=== PATIENT | female | born 1955 | race Caucasian/White ===

== ENCOUNTER 2018-10-05 13:23 | Emergency (ER) | payer MEDICARE ==
[2018-10-05] MEDS ORDERED: DUONEB 0.5-3 MG/3 ml Neb IH ONE ×2 (13:59→14:09)
--- NOTE | 2018-10-05 13:59 | ERPHSYRPT ---
- History of Present Illness Time Seen by Provider: 10/05/18 13:45 Source: patient Exam Limitations: clinical condition Patient Subjective Stated Complaint: pt states she has had intermittent blue discoloration to her left fingers with pain at each onset. 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 Triage Nursing Assessment: pink/warm/dry, resp easy, pt uses assitive devices at home to get around, pt has hx of rt bka, a&ox4, dusky fingers and palm noted to lt hand with cap refill between 6-10 seconds. Physician History: PATIENT WITH A HISTORY OF PULMONARY CARCINOMA, COPD, PERIPHERAL VASCULAR OCCULSIVE DISEASE, AMPUTATION RIGHT BELOW KNEE, COMPLAINS OF INTERMITTENT BLUISH DISCOLORATION TO LEFT FINGERS AND PALM X 5 DAYS. PATIENT UNDER WENT A ULTRASOUND OF THE LEFT UPPER EXTREMITY WHICH WAS NEGATIVE FOR DVT. DENIES PAIN IN FINGERS, DYSPNEA, CHEST PAIN OR PALPITATIONS. PATIENT TREATED WITH A 5 DAY COURSE ANTIBIOTICS ZITHROMAX FOR LEFT PERIHILAR OPACITY FINDING ON CHEST XRAY ON 10/01/2018. Occurred: days ago Method of Injury: other (NO HISTORY OF TRAUMA OR INJURY) Severity of Pain-Max: none Severity of Pain-Current: none Extremities Pain Location: hand: left, thumb: left, 2nd finger: left, 3rd finger : left, 4th finger: left, 5th finger: left Modifying Factors: Improves With: nothing Associated Symptoms: none Allergies/Adverse Reactions: Penicillins Allergy (Severe, Verified 09/05/15 11:56) tramadol Allergy (Verified 10/05/18 13:33) Home Medications: Atorvastatin Calcium [Lipitor] 80 mg PO DAILY 10/05/18 [History] Gabapentin 600 mg PO TID 10/05/18 [History] Morphine Sulfate Cr 60 mg [Ms Contin 60 mg] 60 mg PO BID 10/05/18 [History ] Hx Tetanus, Diphtheria Vaccination/Date Given: Yes Hx Influenza Vaccination/Date Given: No Hx Pneumococcal Vaccination/Date Given: No Immunizations Up to Date: Yes - Review of Systems Constitutional: No Fever, No Chills Eyes: No Symptoms Ears, Nose, & Throat: No Symptoms Respiratory: No Cough, No Dyspnea Cardiac: No Chest Pain, No Edema, No Syncope Musculoskeletal: Other (DISCOLORATION BLUISH LEFT FINGERS) Neurological: No Symptoms, No Dizziness, No Focal Weakness, No Sensory Changes Psychological: No Symptoms - Past Medical History Pertinent Past Medical History: Yes Neurological History: No Pertinent History ENT History: No Pertinent History Cardiac History: No Pertinent History Respiratory History: No Pertinent History Endocrine Medical History: No Pertinent History Musculoskeletal History: Other GI Medical History: No Pertinent History History: No Pertinent History Psycho-Social History: No Pertinent History Female Reproductive Disorders: No Pertinent History Other Medical History: PT. HAD HX LUNG CA 2016; PT. REPORTS SHE HAS HAD METS IN HER SPINE. PT. HAS SCANS EVERY 3 MOS. - Past Surgical History Past Surgical History: Yes Neuro Surgical History: No Pertinent History Cardiac: No Pertinent History Respiratory: No Pertinent History Gastrointestinal: Appendectomy Genitourinary: No Pertinent History Musculoskeletal: Other Female Surgical History: Hysterectomy Other Surgical History: Right BKA - Social History Smoking Status: Former smoker How long have you smoked: 30 years Exposure to second hand smoke: No Drug Use: none Patient Lives Alone: No - Female History Hx Now: No - Nursing Vital Signs Nursing Vital Signs: Initial Vital Signs Temperature 98.4 F 10/05/18 13:34 Pulse Rate 94 H 10/05/18 13:34 Respiratory Rate 16 10/05/18 13:34 Blood Pressure 125/78 10/05/18 13:34 O2 Sat by Pulse Oximetry 97 10/05/18 13:34 Pain Scale Pain Intensity 8 - Physical Exam General Appearance: alert Neck Exam: non-tender, supple Cardiovascular/Respiratory Exam: chest non-tender, regular rate/rhythm, wheezing (THERE IS TERMINAL EXPIRATORY WHEEZES) Abdominal Exam: non-tender, soft Back Exam: normal inspection, normal range of motion Hand Exam: non-tender (THERE IS SLIGHT CYANOSIS OF ALL LEFT HAND DIGITS OF DISTAL PHALANGE, DELAYED CAPILLARY REFILL X 2 MINUTES , SLIGHT GARCIA CYANOSIS OVER HYPOTHENAR EMINENCE, BILATERAL RADIAL PULSES 2+, ULNAR PULSES 2+, THERE IS A RIGHT BELOW THE KNEE AMPUTATION), normal ROM (LEFT DIGITS COOL TO TOUGH AND TENDER UPON PALPATION) Neuro/Tendon Exam: normal sensation Mental Status Exam: alert, oriented x 3 Skin Exam: normal color SpO2 Interpretation: normal SpO2: 97 Ordered Tests: Active Orders 24 hr Category Date Time Status BMP Stat Lab 10/05/18 14:22 Completed CBC W DIFF Stat Lab 10/05/18 14:22 Completed CK-Creatinine Phosphokinase Stat Lab 10/05/18 14:22 Completed PROTIME WITH INR Stat Lab 10/05/18 14:22 Completed EKG STAT RT 10/05/18 13:55 Active Respiratory Nebulizer STAT RT 10/05/18 13:59 Active Respiratory Therapy Assessment DAILY RT 10/05/18 14:21 Active Medication Summary Generic Name Dose Route Start Last Admin Trade Name Freq PRN Reason Stop Dose Admin Sodium Chloride 1,000 mls @ 100 mls/hr 10/05/18 14:00 10/05/18 14:49 Sodium Chloride 0.9% 1000 Ml IV 11/04/18 13:59 100 mls/hr .Q10H ERIS Administration Discontinued Medications Generic Name Dose Route Start Last Admin Trade Name Freq PRN Reason Stop Dose Admin Albuterol/Ipratropium 3 ml 10/05/18 13:59 10/05/18 14:14 Duoneb 0.5-3 Mg/3 Ml Neb IH 10/05/18 14:00 3 ml STAT ONE Administration Albuterol/Ipratropium Confirm 10/05/18 14:09 Duoneb 0.5-3 Mg/3 Ml Neb Administered 10/05/18 14:10 Dose 3 ml IH .STK-MED ONE Lab/Rad Data: Laboratory Result Diagrams 10/05/18 14:22 10/05/18 14:22 Laboratory Results 10/05/18 10/05/18 10/05/18 Range/Units 14:22 14:22 14:22 WBC 8.6 (4.0-10.5) K/mm3 RBC 4.63 (4.1-5.4) M/mm3 Hgb 11.4 L (12.0-16.0) gm/dl Hct 36.5 (35-47) % MCV 78.8 (78-100) fl MCH 24.6 L (26-32) pg MCHC 31.2 L (32-36) g/dl RDW 16.8 H (11.5-14.0) % Plt Count 274 (150-450) K/mm3 MPV 8.6 (6-9.5) fl Gran % 72.9 H (36.0-66.0) % Eos # (Auto) 0.29 (0-0.5) Absolute Lymphs (auto) 1.19 (1.0-4.6) Absolute Monos (auto) 0.83 (0.0-1.3) Lymphocytes % 13.8 L (24.0-44.0) % Monocytes % 9.7 (0.0-12.0) % Eosinophils % 3.4 (0.00-5.0) % Basophils % 0.2 (0.0-0.4) % Absolute Granulocytes 6.27 (1.4-6.9) Basophils # 0.02 (0-0.4) PT 15.7 H (9.95-12.35) SECONDS INR 1.35 (0.8-3.0) Sodium 135 L (137-145) mmol/L Potassium 3.6 (3.5-5.1) mmol/L Chloride 101 (98-107) mmol/L Carbon Dioxide 26 (22-30) mmol/L Anion Gap 11.8 (5-15) MEQ/L BUN 14 (7-17) mg/dL Creatinine 0.63 (0.52-1.04) mg/dL Estimated GFR > 60.0 ML/MIN Glucose 106 (74-106) mg/dL Calcium 9.9 (8.4-10.2) mg/dL Creatine Kinase 23 L (30-135) U/L - Progress Counseled pt/family regarding: lab results, diagnosis, need for follow-up - Departure Time of Disposition: 15:05 Departure Disposition: Home Clinical Impression: RAYNAUDS PHENOMENON LEFT HAND Condition: Stable Critical Care Time: No Referrals: FRANCISCO CHARLES MD [Primary Care Provider] - Additional Instructions: FOLLOWUP WITH DR REYNA VASCULAR SURGEON ON Monday10/08/2018 AT 1:30PM FOR APPOINTMENT. . TYLENOL OR MOTRIN NEEDED FOR PAIN. PER DR REYNA IF CYANOSIS GETS WORSE, OR ONSET OF INCREASING PAIN, GO DIRECTLY TO [facility].
[2018-10-05] MEDS ORDERED: Sodium Chloride 0.9% 1000 ML 1,000 ML ONE (14:03)
[2018-10-05] MEDS: Sodium Chloride 0.9% 1000 ML 1,000 ML IV SCH ×2 (14:04→14:49)
[2018-10-05 14:25] LABS: BASOPHIL % 0.2 % (0.0-0.4); Basophil (Absolute #) 0.02 (0-0.4); Eosinophil % 3.4 % (0.00-5.0); Eosinophil (Absolute #) 0.29 (0-0.5); Granulocyte Absolute (ANC) 6.27 (1.4-6.9); Granulocytes % 72.9 % (36.0-66.0); Hematocrit 36.5 % (35-47); Hemoglobin 11.4 gm/dl (12.0-16.0); Lymphocyte (Absolute #) 1.19 (1.0-4.6); Lymphocytes % 13.8 % (24.0-44.0); Mean Cell Volume 78.8 fl (78-100); Mean Corpuscular Hemoglobin 24.6 pg (26-32); Mean Corpuscular Hgb Concent. 31.2 g/dl (32-36); Mean Platelet Volume 8.6 fl (6-9.5); Monocyte (Absolute #) 0.83 (0.0-1.3); Monocytes % 9.7 % (0.0-12.0); Platelet Count 274 K/mm3 (150-450); Red Blood Count 4.63 M/mm3 (4.1-5.4); Red Cell Distribution Width 16.8 % (11.5-14.0); White Blood Count 8.6 K/mm3 (4.0-10.5)
[2018-10-05 14:38] LABS: INR 1.35 (0.8-3.0); PROTIME 15.7 SECONDS (9.95-12.35)
[2018-10-05 14:43] LABS: ANION GAP 11.8 MEQ/L (5-15); BLOOD UREA NITROGEN 14 mg/dL (7-17); CHLORIDE 101 mmol/L (98-107); CK-Creatinine Phosphokinase 23 U/L (30-135); Calcium 9.9 mg/dL (8.4-10.2); Carbon Dioxide 26 mmol/L (22-30); Creatinine 1 0.63 mg/dL (0.52-1.04); Glucose 106 mg/dL (74-106); Potassium 3.6 mmol/L (3.5-5.1); SODIUM 135 mmol/L (137-145)
[2018-10-05 15:51] VITALS: BP 115/82; PULSE 70; O2SAT 95
== END 2018-10-05 15:51 | disposition home or self-care (01) ==
LOC: ED 13:23
DX: I73.00 Raynaud's syndrome without gangrene (principal); T69.01 Immersion hand; Z85.118 Personal history of other malignant neoplasm of bronchus and lung; J44.9 Chronic obstructive pulmonary disease, unspecified; I73.9 Peripheral vascular disease, unspecified; Z89.511 Acquired absence of right leg below knee; Z79.899 Other long term (current) drug therapy
CPT/HCPCS: 36415; 80048; 82550; 85025; 85610; 94640; 96360; 99284; A9270-GY